=== PATIENT | female | born 2005 | race Caucasian/White ===

== ENCOUNTER 2023-07-14 21:54 | Emergency (ER) | payer OTHER, SELFPAY ==
[2023-07-14 22:04] VITALS: BP 135/81; PULSE 74; RESP 20; TEMP 37.1; O2SAT 98; BMI 27.4
[2023-07-14 22:26] LABS: Hematocrit 38.5 % (37.0-47.0); Hemoglobin 12.9 g/dl (12.0-16.0); Mean Corpuscular HGB Conc 33.5 g/dl (31.0-35.0); Mean Corpuscular Hemoglobin 29.5 pg (27.0-33.0); Mean Corpuscular Volume 88.1 fL (80.0-98.0); Mean Platelet Volume 8.8 fL (9.4-12.3); Platelet Count 364 X10*3/uL (160-400); Red Blood Count 4.37 X10*6/uL (4.20-5.50); Red Cell Distribution Width 12.3 % (11.0-16.0); White Blood Count 6.6 X10*3/uL (4.8-10.8)
[2023-07-14 22:34] LABS: Alanine Aminotransferase 24 U/L (0-31); Albumin Level 4.1 g/dL (3.5-5.0); Alkaline Phosphatase 40 U/L (39-117); Anion Gap 12 (12-20); Aspartate Amino Transferase 24 U/L (5-31); Bilirubin Total 0.3 mg/dL (0.0-1.0); Blood Urea Nitrogen 8 mg/dL (9-16); Calcium 9.2 mg/dL (8.4-10.2); Carbon Dioxide 22 mmol/L (22-29); Chloride 109 mmol/L (96-108); Creatinine Clr Calc Pharmacy 115.2; Estimated Glomerular Filt Rate > 60; Glucose Random 92 mg/dL (60-115); Potassium 3.8 mmol/L (3.3-5.1); Sodium 139 mmol/L (135-145); Total Protein 6.7 g/dL (6.5-8.0)
--- NOTE | 2023-07-14 23:36 | PC.NURSE ---
pt ambulating with a steady gait, pt brought to room 22, notified CARROLL Santoro
[2023-07-14 23:38] VITALS: BP 121/73; PULSE 61; PULSE 65; RESP 18; TEMP 36.6; O2SAT 98
[2023-07-14 23:44] VITALS: BP 122/82; PULSE 65
[2023-07-14 23:45] VITALS: BP 118/71; PULSE 67
--- NOTE | 2023-07-14 23:51 | ECG_ITS ---
Test Reason : NEAR SYNCOPE Blood Pressure : / mmHG Vent. Rate : 054 BPM Atrial Rate : 054 BPM P-R Int : 094 ms QRS Dur : 092 ms QT Int : 428 ms P-R-T Axes : 006 051 013 degrees QTc Int : 405 ms Sinus bradycardia with short MT Otherwise normal ECG No previous ECGs available Referred By: Denice Amaya Electronically Signed By:GERHARD STANLEY MD
--- NOTE | 2023-07-14 23:55 | ED_ITS ---
HPI - General Adult General Chief complaint: General Medical Stated complaint: Abd pain/Fatigue Time Seen by Provider: 07/14/23 23:35 Source: patient Mode of arrival: ambulatory Limitations: no limitations History of Present Illness HPI narrative: 17 yo female being worked up for endometriosis in [place] due for surgery who notes chronic dizziness at times and syncope. She comes in with c/o feeling more cramps than usual this week and dizziness and she feels she is going to pass out. She is on her period she is on OCPs and notes a period for 3 months. She missed class all week due to feeling weak and tired. She has no hx of POTs. She denies any other PMH. MD complaint: weakness, near syncope, cramps Onset (ago): week(s) (1) Radiation: non-radiation Severity: moderate Pain Consistency: intermittent Relieving factors: rest Exacerbating factors: movement (standing up) Associated symptoms: loss of appetite, malaise and weakness Treatments prior to arrival: NSAID Related Data Allergies Allergy/AdvReac Type Severity Reaction Status Date / Time No Known Allergies Allergy Verified 07/14/23 22:08 Review of Systems 2 Review of Systems: Constitutional : No Weight loss, No Fever, No Chills, pos anorexia Cardiovascular : No Chest Pain, No SOB, NoEdema Respiratory : No Cough, No Sputum, No Wheezing Gastrointestinal : no Nausea, no Vomiting, no Diarrhea, positive abdominal Pain, No Hematochezia, No Melena Genitourinary : No Dysuria, No Urinary Frequency, No Hematuria, No Urgency Musculoskeletal : No joint pain, No Myalgias, No Joint Swelling Skin : No Skin Lesions, No rash Neuro : pos Weakness, No Numbness, No Dizziness, No Headache Psych : No Anxiety/Panic, No Depression All other systems reviewed and are negative. [facility] Past Medical History Attestation statement: The following information was validated with the patient. Medical History Syncope Pelvic pain Social History Social History Smoked in Last 30 Days: No Use of substances other than those prescribed or required for medical reasons: No Advance Directives: No Advance Directives Information Provided: No Patient : No Physical Exam ED Vital Signs: Vital Signs - 24 hr 07/14/23 22:04 07/14/23 23:38 07/14/23 23:38 Temperature 98.8 F 97.8 F Pulse Rate 74 61 65 Respiratory Rate 20 18 Blood Pressure 135/81 121/73 121/73 Pulse Oximetry 98 98 Oxygen Delivery Method Room Air 07/14/23 23:44 07/14/23 23:45 Temperature Pulse Rate 65 67 Respiratory Rate Blood Pressure 122/82 118/71 Pulse Oximetry Oxygen Delivery Method BMI result Body Mass Index 27.4 Appearance: Alert. Oriented X3. No acute distress. Eyes: Pupils equal, round and reactive to light. ENT: Pharynx normal. Neck: Normal inspection. Neck supple. CVS: Normal heart rate and rhythm. Pulses normal. Respiratory: No respiratory distress. Breath sounds normal. Abdomen: Soft and nontender. Skin: Skin warm and dry. Normal skin color. Normal skin turgor. Extremities: No lower extremity edema. No calf ttp Neuro: Oriented X 3. No motor deficit. No sensory deficit. Course Course Course Narrative: neg ortho VS Medications Administered Discontinued Medications Generic Name Dose Route Start Last Admin Trade Name Freq PRN Reason Stop Dose Admin Sodium Chloride 1,000 mls @ 999 mls/hr 07/14/23 23:45 07/14/23 23:59 Ns IVCONT 07/15/23 00:45 999 mls/hr .Q1H1M [facility] Administration Medical Decision Making Medical Decision Making [facility] Narrative: 17 yo female with PMH of endometriosis here with c/o pelvic pain, cramping, near syncope at times this is not new has had this before. She felt more weak and crampy this week. No sig bleeding, no STI concerns. At this time no CP/SOB, no VS to suggest VTE, ortho VS negative not consistent with POTs. will obtain labs, EKG, hydrate and reassess. Her abdomen is benign doubt appendicitis or cyst has had multiple US in past. Differential Diagnosis Differential Diagnoses: The differential diagnosis associated with the presentation includes weakness, fatigue, anemia, endometriosis Admission/Observation Consideration of admission/observation: Escalation of care including admission/observation considered VS stable, not toxic stable for DC, feels better Lab Data [facility] Lab Attestation statement: I reviewed the patient's lab results. 07/14/23 22:13 07/14/23 22:13 Labs: Lab Results 07/14/23 07/15/23 Range/Units 22:13 00:21 WBC 6.6 (4.8-10.8) X10*3/uL RBC 4.37 (4.20-5.50) X10*6/uL Hgb 12.9 (12.0-16.0) g/dl Hct 38.5 (37.0-47.0) % MCV 88.1 (80.0-98.0) fL MCH 29.5 (27.0-33.0) pg MCHC 33.5 (31.0-35.0) g/dl RDW 12.3 (11.0-16.0) % Plt Count 364 (160-400) X10*3/uL MPV 8.8 L (9.4-12.3) fL Absolute Nucleated RBC 0.000 (0.0-0.012) X10*3/uL Nucleated RBC % (auto) 0.0 (0.0-0.2) /100WBC Sodium 139 (135-145) mmol/L Potassium 3.8 (3.3-5.1) mmol/L Chloride 109 H (96-108) mmol/L Carbon Dioxide 22 (22-29) mmol/L Anion Gap 12 (12-20) BUN 8 L (9-16) mg/dL Creatinine 0.71 (0.5-1.4) mg/dL Estim Creat Clear Calc 115.2 Estimated GFR > 60 Random Glucose 92 (60-115) mg/dL Calcium 9.2 (8.4-10.2) mg/dL Total Bilirubin 0.3 (0.0-1.0) mg/dL AST 24 (5-31) U/L ALT 24 (0-31) U/L Alkaline Phosphatase 40 (39-117) U/L Total Protein 6.7 (6.5-8.0) g/dL Albumin 4.1 (3.5-5.0) g/dL Urine Color Yellow Urine Appearance Clear Urine pH 7.0 (5.0-9.0) Ur Specific [place] <= 1.005 (1.005-1.025) Urine Protein Negative (Neg-Trace) mg/dL Urine Glucose (UA) Negative (Negative) mg/dL Urine Ketones Negative (Negative) mg/dL Urine Blood Negative (Negative) Urine Nitrite Negative (Negative) Ur Leukocyte Esterase Small (1+) H (Negative) Urine RBC 0-2 (0-2) /HPF Urine WBC 0-5 (0-5) /HPF Ur Squamous Epith Cells 0-2 (0-2) /HPF Urine Bacteria None Seen (None Seen) Hyaline Casts 0-2 (0-2) /LPF Urine Test NEGATIVE (NEGATIVE) Independent Interpretation I performed an independent interpretation of an: EKG Interpretation: Rate: 54 Rhythm: sinus bradycardia [place]: normal Normal P waves. Normal IOANA. Normal QRS complex. ST T wave : normal no DOLLY qTC: normal prior studies: no acute ischemia The study has been interpreted contemporaneously by me. . Independent Historian Clinical information obtained from an independent historian. History obtained from or confirmed by: Friend Discharge Plan Discharge Clinical Impression: Malaise and fatigue Patient Disposition: Home, Self-Care Instructions: Fatigue (ED) Additional Instructions: no anemia, dehydration, electrocardiogram reassuring, normal liver tests, no urinary tract infection. orthostatic vital signs normal drink plenty of fluids, rest and stay hydrated. follow up with S if not better this weekend. talk to your OBGYN as well. Stand Alone Forms: Work/School Release
[2023-07-14] MEDS: 0.9 % Sodium Chloride 1,000 ML 999 ML IVCONT (23:59)
[2023-07-15 00:29] LABS: Appearance Urine Clear; Color Urine Yellow; Glucose Urine UA Negative (Negative); Leukocyte Esterase Urine Small (1+) (Negative); Nitrite Urine Negative (Negative); Specific Gravity - Urine <= 1.005 (1.005-1.025); UMIC TRIGGER UACC YES; UPreg QC Valid YES; Urine Blood Negative (Negative); Urine Ketones Negative (Negative); Urine Pregnancy NEGATIVE (NEGATIVE); Urine Protein Negative (Neg-Trace)
[2023-07-15 00:40] LABS: Bacteria Urine None Seen (None Seen); Hyaline Casts Urine 0-2 /LPF (0-2); RBC Urine 0-2 /HPF (0-2); Squamous Epithelial Cell Urine 0-2 /HPF (0-2); UACC Culture Trigger YES; WBC Urine 0-5 /HPF (0-5)
== END 2023-07-15 01:30 | disposition home or self-care (01) ==
PROVIDERS: Emergency Provider Emergency Medicine
DX: R53.81 Other malaise (principal); R53.83 Other fatigue
CPT/HCPCS: 36415; 80053; 81001; 81025; 85027; 87086; 93005; 99283; 99285